=== PATIENT | female | born 1970 | race Caucasian/White ===

== ENCOUNTER 2017-06-11 20:05 | Emergency (ER) | payer OTHER ==
[2017-06-11 20:55] VITALS: BP 120/76
== END 2017-06-11 20:55 | disposition home or self-care (01) ==
LOC: ED 20:05
DX: H10.13 Acute atopic conjunctivitis, bilateral (principal); E03.9 Hypothyroidism, unspecified; Z86.2 Personal history of diseases of the blood and blood-forming organs and certain disorders involving the immune mechanism